=== PATIENT | male | born 1960 | race Caucasian/White ===

== ENCOUNTER 2024-10-07 16:13 | Emergency (ER) | payer MEDICAID, SELFPAY ==
[2024-10-07 16:15] VITALS: BMI 20.9
[2024-10-07 16:37] VITALS: BP 156/91; PULSE 86; RESP 20; TEMP 37.2; O2SAT 97
--- NOTE | 2024-10-07 16:51 | XR_ITS ---
Examination: CT maxillofacial, with contrast 2-D sagittal and coronal reconstructions. 3-D reconstructions Date and time of exam:October 07, 2024 1946 hrs. Indications: Upper right leg swelling beginning 3 days ago CTDI: vol (mGy):16.5 DLP: (mGycm): 376 Technique: Multiple axial images maxillofacial region, 3.0 mm slice thickness, post intravenous injection 50 cc [id number] 2-D sagittal coronal reconstructions. 3-D reconstructions Low dose protocols were performed. One or more of the following dose reduction techniques were used; automated exposure control, adjustment of the mA and/or KV according to patient size, use of iterative reconstruction technique. Findings: Abscess 20 x 14 x 18 mm in the soft tissue upper right lip external to the mandible and maxilla This may be secondary to right maxillary incisor dental caries, axial image 68 No fracture No encroachment upon the oropharynx or nasopharynx The epiglottis appears normal Impression: 20 x 14 x 18 mm abscess in the soft tissue upper right lobe
--- NOTE | 2024-10-07 16:55 | PD.EDRME ---
Rapid Medical Screening Exam RME Arrival date/time: 10/07/24 16:13 64-year-old male with no known medical history presents to the emergency room with a chief complaint of right upper cheek swelling x 3 days I have greeted and performed a focused initial assessment of this patient. A comprehensive ED assessment and evaluation of the patient, analysis of all test results, and completion of the medical decision making process will be conducted by additional ED providers. Chief Complaint: General Adult/Misc Complain Time Seen by Provider: 10/07/24 16:19 Vital signs: Vital Signs Temperature 98.9 F 10/07/24 16:37 Pulse Rate 86 10/07/24 16:37 Respiratory Rate 20 10/07/24 16:37 Blood Pressure 156/91 H 10/07/24 16:37 Pulse Oximetry (%) 97 10/07/24 16:37 Oxygen Delivery Method Room Air 10/07/24 16:37 Vital signs reviewed by provider: Yes
[2024-10-07 17:14] LABS: Basophils # (Auto) 0.1 Thou/mm3 (0.0-0.2); Basophils % (Auto) 1 % (0-2.5); Eosinophils # (Auto) 0.2 Thou/mm3 (0.0-0.5); Eosinophils % (Auto) 1 % (0-10); Hematocrit 48.1 % (41.0-53.0); Hemoglobin 17.3 g/dL (13.5-16.0); Immature Granulocytes % (Auto) 0 % (0-0); Immature Granulocytes Auto 0.07 Thou/mm3 (0.00-0.00); Lymphocytes # (Auto) 2.4 Thou/mm3 (1.0-4.8); Lymphocytes % (Auto) 15 % (10-50); Mean Corpuscular Hemoglobin 32.5 pg (25.0-35.0); Mean Corpuscular Volume 90 fL (80-100); Monocytes # (Auto) 1.3 Thou/mm3 (0.0-0.8); Monocytes % (Auto) 8 % (0-12); Neutrophils % (Auto) 75 % (37-80); Nucleated Red Blood Cell % 0 /100 WBC (0); Platelet Count 211 Thou/mm3 (140-440); RDW Standard Deviation 46.8 fL (35.1-43.9); Red Blood Count 5.32 Miln/mm3 (4.50-5.90)
[2024-10-07 17:34] LABS: Alanine Aminotransferase 15 U/L (10-49); Albumin, Serum 4.4 gm/dL (3.4-4.8); Albumin/Globulin Ratio 1.7 (1.2-2.2); Alkaline Phosphatase 92 U/L (46-116); Anion Gap 9 (7-16); Aspartate Amino Transferase 14 U/L (0-34); BUN/Creatinine Ratio 21 Ratio (12-20); Bilirubin,Total 0.8 mg/dL (0.3-1.2); Blood Urea Nitrogen 15 mg/dL (9-23); Calcium 9.6 mg/dL (8.3-10.6); Calcium (Corrected) 9.6 mg/dL (8.5-10.1); Carbon Dioxide 24.6 mMol/L (20.0-31.0); Chloride 106 mMol/L (98-107); Creatinine (Component) 0.7 mg/dL (0.6-1.3); Estimated Creatinine Clearance 87.7 mL/min (>60); Globulin 2.6 gm/dL (2.3-3.5); Glucose 106 mg/dL (74-106); Osmolality,Calculated 280 (275-295); Potassium 3.9 mMol/L (3.4-5.1); Sodium 140 mMol/L (136-145); eGFR > 60 See Note
[2024-10-07] MEDS: PIPER/TAZO INJ 3.375 GM in SODIUM CHLORIDE 0.9% (P) 50 ML IV (19:34)
[2024-10-07] MEDS: oxyCODONE/APAP 5/325 TABLET 1 TAB PO (20:50)
--- NOTE | 2024-10-07 21:11 | PD.EDADULT ---
ED General RME/HPI General Chief complaint: General Adult/Misc Complain Stated complaint: RIGHT UPPER LIP AND CHEEK SWELLING X3 DAYS Time Seen by Provider: 10/07/24 16:19 Arrival date/time: 10/07/24 16:13 CC: Right cheek abscess HPI ongoing for the past 3 years patient thinks he was scratched by his dog but is not sure. Patient said insidious onset denies fever difficult swallowing difficulty speaking not in any acute distress but in mild discomfort. Localized pain is 4-5 on a 10 scale. RME / HPI RME / HPI narrative: 10/07/24 16:13 64-year-old male with no known medical history presents to the emergency room with a chief complaint of right upper cheek swelling x 3 days I have greeted and performed a focused initial assessment of this patient. A comprehensive ED assessment and evaluation of the patient, analysis of all test results, and completion of the medical decision making process will be conducted by additional ED providers. Related Data Previous Rx's ?Medication ?Instructions ?Recorded amoxicillin 875 mg-potassium 1 tab PO BID #14 tabs 10/07/24 clavulanate 125 mg tablet Allergies Allergy/AdvReac Type Severity Reaction Status Date / Time No Known Allergies Allergy Verified 10/07/24 16:14 Review of Systems Review of Systems Narrative Review of Systems: GEN: No fever, no chills, no weight loss EYES: No discharge, no visual changes, no pain HEENT: No ear pain, no congestion, no sore throat PULM: No shortness of breath, no cough, no congestion CV: No chest pain, no dyspnea on exertion, no palpitations GI: No nausea, no vomiting, no diarrhea, no pain, no constipation : No frequency, no urgency, no dysuria MUSC/SKEL: No joint pain, no back pain SKIN: + Abscess, no rash PSYCH: No hallucinations, no depression HEME/LYMPH: No easy bleeding or bruising tendencies NEURO: No weakness, no headache Past Medical History Past Medical History CARDIAC: Negative Cardiac Disorders RESPIRATORY: Negative Asthma GENITOURINARY: Negative Renal Disease ENDOCRINE: Negative Diabetes Mellitus Type 2 HEMATOLOGIC: Negative Sickle Cell Disease Social History SMOKING STATUS: Former smoker ED Exam Narrative Physical exam: [General: In mild discomfort but not in any acute distress Head normocephalic HEENT: Face: The patient has a 3 cm circular firm rigid protruding area that is erythematous and tender to touch on the right upper lip but no vermilion border involvement. Mouth: [place] moist membranes uvula is midline no protrusion bulging or open area to the right mucosa. Swallow symmetrical phonation is normal. Eyes: Pupils are PERRLA EOMs are intact no periorbital edema or erythema. Nose: No rhinorrhea or otorrhea. All other subsystems of HEENT are within acceptable limits Neck is supple nontender Chest equal chest rise nontender to palpation Respiratory: Clear to auscultation no wheezes crackles or rubs CV: Rate rhythm is regular no murmurs rubs or clicks Abdomen is distended secondary to body habitus soft nontender no masses positive bowel sounds all 4 quadrants Back: No CVA tenderness no spinous process tenderness from cervical spine thoracic and lumbar spine Skin: 3 cm right cheek abscess. Otherwise skin is intact no petechiae rash induration ulceration or crepitus Extremities: Moving all extremity against resistance cap refill less than 2 seconds neurosensory intact Neuro: Awake alert oriented x3 Glascow coma 15 no focal deficits] Course Quality Measures none Orders Category Date Time Status CT Screening NOW Care 10/07/24 16:[address] Screening X1 Care 10/07/24 16:51 Active Insert IV NOW Care 10/07/24 16:[address] facial bones w con Stat Exams 10/07/24 16:51 Taken CBC Stat Lab 10/07/24 17:00 Completed CMP [Comprehensive Metabolic Panel] Stat Lab 10/07/24 17:00 Completed Piper/Tazo Inj [Zosyn Inj] 3.375 gm Med 10/07/24 18:03 Discontinued Sodium Chloride 0.9% (P) [Ns 0.9% (P)] 50 ml IV X1 oxyCODONE/APAP 5/325 [Percocet 5/325] Med 10/07/24 20:47 Discontinued 1 tab PO X1 ONE Vital Signs Vital signs: Vital Signs Temperature 98.9 F 10/07/24 16:37 Pulse Rate 86 10/07/24 16:37 Respiratory Rate 20 10/07/24 16:37 Blood Pressure 156/91 H 10/07/24 16:37 Pulse Oximetry (%) 97 10/07/24 16:37 Oxygen Delivery Method Room Air 10/07/24 16:37 Procedures -ED Procedure Comment Abscess I&D: Anesthesia: 1% lidocaine without epinephrine: 2 mL injected into the local site, using a #25 blade, 1 cm full-thickness laceration made. Small to moderate amount of foul-smelling exudative milked from the site. Loculations were broken up. No packing placed. Patient tolerated the procedure well. [facility] Patient data External records reviewed:: [facility] previous records Clinical information provided by:: patient and spouse Social determinants that could affect healthcare access:: none Patient has the following chronic illnesses:: None How is presenting disease/condition affected by chronic disease/condition?: uneffected by Evaluation data The following diagnostics were reviewed and interpreted by me:: lab results and radiology exam(s) Lab and/or radiology exams considered but not ordered:: CBC shows leukocytosis of 16,000 no anemia thrombocytopenia CMP shows no acute electrolyte imbalances renal impairment transaminitis or T. bili elevation CT of the face as interpreted by me shows a abscess with mild surrounding cellulitis. Interpretation Summary: Prior to read, pt case discuseed and imaging reviewed by Dr Fishman, who agrees abscess needs to be drained. Medications Medications considered but not ordered:: None Medication administrations:: Medication Administration History Discontinued Medications Piperacillin Sod/Tazobactam (Sod 3.375 gm/ Sodium Chloride) 50 mls @ 100 mls/hr IV X1 ONE Stop: 10/07/24 18:32 Last Admin: 10/07/24 19:34 Dose: 100 mls/hr Documented By: EF Oxycodone/Acetaminophen (Oxycodone/Apap 5/325 Tablet) 1 tab PO X1 ONE Stop: 10/07/24 20:48 Last Admin: 10/07/24 20:50 Dose: 1 tab Documented By: KF None Consultations Consultation(s) initiated? (list below): No Diagnosis Differential Diagnosis ED Complaint MDM: Facial cellulitis facial abscess dental abscess Most likely diagnosis given after review of the tests above:: Face abscess Admission Indicated Admission indicated?: not indicated Explain why admission is indicated or not indicated:: Stable for close outpatient follow-up Admission Request Was there a request for admission?: No Disposition Plan Disposition Plan: Discharge Discharge Attestation Discharge Attestation: The patient and all family members were given an opportunity to ask questions and understood the discharge instructions. Discharge instructions specifically effects, indications for sooner follow up or return to the emergency department, and the expected course of current diagnosis. Patient condition: Stable Medical Decision Making Differential Diagnosis Differential Diagnosis: Facial cellulitis facial abscess dental abscess Lab Data 10/07/24 17:00 10/07/24 17:00 Labs: Lab Results 10/07/24 Range/Units 17:00 WBC 16.0 H (3.8-10.6) Thou/mm3 RBC 5.32 (4.50-5.90) Miln/mm3 Hgb 17.3 H (13.5-16.0) g/dL Hct 48.1 (41.0-53.0) % MCV 90 (80-100) fL MCH 32.5 (25.0-35.0) pg MCHC 36.0 (31.0-37.0) g/dl RDW Std Deviation 46.8 H (35.1-43.9) fL Plt Count 211 (140-440) Thou/mm3 Neut % (Auto) 75 (37-80) % Lymph % (Auto) 15 (10-50) % [place] % (Auto) 8 (0-12) % Eos % (Auto) 1 (0-10) % Baso % (Auto) 1 (0-2.5) % Neut # (Auto) 12.0 H (1.8-7.7) Thou/mm3 Lymph # (Auto) 2.4 (1.0-4.8) Thou/mm3 [place] # (Auto) 1.3 H (0.0-0.8) Thou/mm3 Eos # (Auto) 0.2 (0.0-0.5) Thou/mm3 Baso # (Auto) 0.1 (0.0-0.2) Thou/mm3 Immature Gran # (Auto) 0.07 H (0.00-0.00) Thou/mm3 Absolute Nucleated RBC 0.00 (0.00-0.00) Thou/mm3 Immature Gran % 0 (0-0) % Nucleated RBC % 0 (0) /100 WBC Sodium 140 (136-145) mMol/L Potassium 3.9 (3.4-5.1) mMol/L Chloride 106 (98-107) mMol/L Carbon Dioxide 24.6 (20.0-31.0) mMol/L Anion Gap 9 (7-16) BUN 15 (9-23) mg/dL Creatinine 0.7 (0.6-1.3) mg/dL Estim Creat Clear Calc 87.7 (>60) mL/min eGFR > 60 (60 - ) See Note BUN/Creatinine Ratio 21 H (12-20) Ratio Glucose 106 (74-106) mg/dL Calculated Osmolality 280 (275-295) Calcium 9.6 (8.3-10.6) mg/dL Corrected Calcium 9.6 (8.5-10.1) mg/dL Total Bilirubin 0.8 (0.3-1.2) mg/dL AST 14 (0-34) U/L ALT 15 (10-49) U/L Alkaline Phosphatase 92 (46-116) U/L Total Protein 7.0 (5.7-8.2) gm/dL Albumin 4.4 (3.4-4.8) gm/dL Globulin 2.6 (2.3-3.5) gm/dL Albumin/Globulin Ratio 1.7 (1.2-2.2) Discharge Plan Plan Patient Disposition: HOME (Self Care) Patient condition on transfer: Stable Prescriptions/Referrals Prescriptions/Med Rec: New amoxicillin-pot clavulanate 875-125 mg tablet 1 tab PO BID Qty: 14 0RF Referrals: Brian Loving MD [Physician] - In 1 week No Primary/Family,Physician [Primary Care Provider] - In 1 week Problem List Clinical Impression: Abscess of face Patient/Caregiver Discharge Instructions Other Activity Instructions:: Take the medication as prescribed use ibuprofen or Tylenol for pain, if there is any fever or worsening of symptoms return the emergency room immediately for further evaluation. Return in 2 days for reevaluation. If there is a worsening of symptoms in spite of the medications before 2 days are up return immediately for reevaluation. Education Materials: ED Abscess, Incision And Drainage Print Language: Sinhala Stand Alone Forms: Polly Award Info., Patient Portal Info Letter, Work/School Release KRISTY/MATTI Supervising Physician KRISTY/MATTI Supervising Physician: Giuliano Benedict ENP
== END 2024-10-07 22:37 | disposition home or self-care (01) ==
PROVIDERS: Nurse Practitioner Family; Emergency Provider Emergency Medicine
DX: L02.01 Cutaneous abscess of face (principal)
CPT/HCPCS: 10060; 36415; 70487; 80053; 85025; 99285; A4649; J2543; J7050; Q9967; A9270

== ENCOUNTER → 2025-08-02 | Outpatient (CLI) | payer MEDICARE, MEDICAID, SELFPAY ==
[2025-08-02 10:01] LABS: Basophils # (Auto) 0.1 Thou/mm3 (0.0-0.2); Basophils % (Auto) 1 % (0-2.5); Eosinophils # (Auto) 0.3 Thou/mm3 (0.0-0.5); Eosinophils % (Auto) 3 % (0-10); Hematocrit 47.1 % (41.0-53.0); Hemoglobin 16.3 g/dL (13.5-16.0); Immature Granulocytes Auto 0.02 Thou/mm3 (0.00-0.00); Lymphocytes # (Auto) 1.8 Thou/mm3 (1.0-4.8); Lymphocytes % (Auto) 21 % (10-50); Mean Corpuscular HGB Conc 34.6 g/dl (31.0-37.0); Mean Corpuscular Hemoglobin 32.5 pg (25.0-35.0); Mean Corpuscular Volume 94 fL (80-100); Monocytes # (Auto) 0.5 Thou/mm3 (0.0-0.8); Monocytes % (Auto) 6 % (0-12); Neutrophils # (Auto) 5.9 Thou/mm3 (1.8-7.7); Neutrophils % (Auto) 68 % (37-80); Nucleated Red Blood Cell # 0.00 Thou/mm3 (0.00-0.00); Nucleated Red Blood Cell % 0 /100 WBC (0); Platelet Count 238 Thou/mm3 (140-440); RDW Standard Deviation 48.7 fL (35.1-43.9); Red Blood Count 5.01 Miln/mm3 (4.50-5.90); White Blood Count 8.7 Thou/mm3 (3.8-10.6)
[2025-08-02 10:20] LABS: Alanine Aminotransferase 15 U/L (10-49); Albumin, Serum 4.1 gm/dL (3.4-4.8); Alkaline Phosphatase 88 U/L (46-116); Anion Gap 12 (7-16); Aspartate Amino Transferase 18 U/L (0-34); BUN/Creatinine Ratio 16 Ratio (12-20); Bilirubin,Direct 0.2 mg/dL (0.0-0.3); Bilirubin,Total 0.6 mg/dL (0.3-1.2); Blood Urea Nitrogen 14 mg/dL (9-23); Calcium 9.2 mg/dL (8.3-10.6); Carbon Dioxide 26.5 mMol/L (20.0-31.0); Cardiac Risk Estimate 2.0 RATIO (4.0-6.7); Chloride 108 mMol/L (98-107); Cholesterol 153 mg/dL (132-200); Creatinine (Component) 0.9 mg/dL (0.6-1.3); Glucose 162 mg/dL (74-106); HDL Cholesterol 76 mg/dL (40-60); LDL Cholesterol,Calculated 64 mg/dL (0-130); Osmolality,Calculated 295 (275-295); Potassium 3.7 mMol/L (3.4-5.1); Sodium 146 mMol/L (136-145); Total Protein 6.3 gm/dL (5.7-8.2); Triglycerides 67 mg/dL (30-150); eGFR > 60 See Note
[2025-08-06 06:29] LABS: Fecal Globin Result NOT DETECTED (NOT DETECTED)
== END | disposition home or self-care (01) ==
PROVIDERS: PCP Family Medicine; Referring Provider Family Medicine; Visit Provider Family Medicine
DX: Z00.01 Encounter for general adult medical examination with abnormal findings (principal); J44.9 Chronic obstructive pulmonary disease, unspecified
CPT/HCPCS: 36415; 80048; 80061; 80076; 82274; 85025; G0328